=== PATIENT | female | born 1945 | race Native Hawaiian/Other Pacific Islander ===

== ENCOUNTER 2017-04-11 08:59 | Outpatient (CLI) | payer OTHER ==
[2017-04-11 09:56] LABS: PLATELET COUNT 208 K/uL (152-353)
[2017-04-11 10:12] LABS: POTASSIUM 4.1 mmol/L (3.6-5.2)
[2017-04-11 14:10] LABS: LDL CHOLESTEROL 112.6 mg/dL (0-99*)
== END 2017-04-11 10:30 | disposition home or self-care (01) ==
LOC: RAD 08:59 → LABW 08:59
PROVIDERS: Nurse Practitioner
DX: E03.9 Hypothyroidism, unspecified (principal); R73.9 Hyperglycemia, unspecified; E55.9 Vitamin D deficiency, unspecified; E78.00 Pure hypercholesterolemia, unspecified; R06.02 Shortness of breath
CPT/HCPCS: 36415; 80053; 80061; 82043; 82306; 82570; 83036; 84443; 85027

== ENCOUNTER 2017-12-31 08:44 | Outpatient (CLI) | payer OTHER | END 2017-12-31 22:19 | disposition home or self-care (01) | LOC: MAMMO 08:44 | DX: Z12.31 Encounter for screening mammogram for malignant neoplasm of breast (principal) ==

== ENCOUNTER 2018-01-02 07:50 | Outpatient (CLI) | payer OTHER ==
[2018-01-02 08:40] LABS: PLATELET COUNT 231 K/uL (152-353)
[2018-01-02 08:47] LABS: POTASSIUM 3.7 mmol/L (3.6-5.2)
== END 2018-01-02 20:11 | disposition home or self-care (01) ==
LOC: LABW 07:50
PROVIDERS: Nurse Practitioner
DX: I10 Essential (primary) hypertension (principal); E78.00 Pure hypercholesterolemia, unspecified; E03.8 Other specified hypothyroidism; E55.9 Vitamin D deficiency, unspecified
CPT/HCPCS: 36415; 80053; 80061; 82306; 84443; 85027

== ENCOUNTER 2021-09-19 14:26 | Outpatient (CLI) | payer OTHER | END 2021-09-19 18:57 | disposition home or self-care (01) | LOC: MAMMO 14:26 | PROVIDERS: ATTEND Nurse Practitioner | DX: Z12.31 Encounter for screening mammogram for malignant neoplasm of breast (principal) ==

== ENCOUNTER 2022-10-01 09:48 | Outpatient (CLI) | payer OTHER | END 2022-10-01 20:44 | disposition home or self-care (01) | LOC: MAMMO 09:48 | PROVIDERS: ATTEND Internal Medicine | DX: Z12.31 Encounter for screening mammogram for malignant neoplasm of breast (principal) ==

== ENCOUNTER 2022-10-15 11:34 | Outpatient (CLI) | payer OTHER | END 2022-10-15 21:37 | disposition home or self-care (01) | LOC: RAD 11:34 | PROVIDERS: ATTEND Internal Medicine | DX: R05.3 Chronic cough (principal) ==

== ENCOUNTER 2023-01-28 09:06 | Outpatient (CLI) | payer OTHER | END 2023-01-28 19:26 | disposition home or self-care (01) | LOC: CT 09:06 | PROVIDERS: ATTEND Internal Medicine | DX: R94.5 Abnormal results of liver function studies (principal); R06.02 Shortness of breath | CPT/HCPCS: 36415; 82565; 84520; Q9963 ==

== ENCOUNTER 2023-04-10 09:27 | Outpatient (CLI) | payer OTHER | END 2023-04-10 19:16 | disposition home or self-care (01) | LOC: CT 09:27 | PROVIDERS: ATTEND Internal Medicine Critical Care Medicine | DX: R93.89 Abnormal findings on diagnostic imaging of other specified body structures (principal) ==